=== PATIENT | female | born 1980 | race Caucasian/White ===

== ENCOUNTER → 2020-07-31 | Outpatient (CLI) | payer BC | LOC: EMI 14:46 | DX: M54.5 Low back pain (principal); M51.26 Other intervertebral disc displacement, lumbar region; M51.86 Other intervertebral disc disorders, lumbar region | CPT/HCPCS: 72148 ==

== ENCOUNTER → 2020-09-20 | Outpatient (CLI) | payer BC | LOC: KOH-I 15:26 | DX: R22.31 Localized swelling, mass and lump, right upper limb (principal) | CPT/HCPCS: 76882 ==

== ENCOUNTER → 2020-10-09 | Outpatient (CLI) | payer BC ==
[2020-10-09 11:46] LABS: HEMOGLOBIN 12.8 gm/dl (12.3-15.3); RED BLOOD COUNT 4.86 M/UL (4.00-5.10); WHITE BLOOD COUNT 5.5 K/UL (4.5-11.0)
[2020-10-09 11:58] LABS: BUN/CREATININE RATIO 14 (0-10)
[2020-10-10 08:14] LABS: HBSAG SCREEN Negative (Negative); HEP A AB, IGM Negative (Negative); HEP B CORE AB, IGM Negative (Negative); HEP C VIRUS AB <0.1 (0.0-0.9); VITAMIN D, 25-HYDROXY 22.7 ng/mL (30.0-100.0)
[2020-10-10 10:14] LABS: RHEUMATOID ARTHRITIS FACTOR 60.8 IU/mL (0.0-13.9)
[2020-10-11 00:09] LABS: CCP ANTIBODIES IGG/IGA 10 units (0-19)
[2020-10-15 18:11] LABS: QUANTIFERON MITOGEN VALUE >10.00 IU/mL (.); QUANTIFERON-TB GOLD PLUS Negative (Negative)
== END ==
LOC: LAB 10:30
PROVIDERS: Nurse Practitioner Family
DX: M25.50 Pain in unspecified joint (principal); R76.8 Other specified abnormal immunological findings in serum; R53.83 Other fatigue; M79.10 Myalgia, unspecified site; M06.9 Rheumatoid arthritis, unspecified; D89.9 Disorder involving the immune mechanism, unspecified
CPT/HCPCS: 36415; 80053; 80074; 82550; 82728; 83520; 85025; 85652; 86140; 86200; 86431

== ENCOUNTER → 2021-03-05 | Outpatient (CLI) | payer BC ==
[2021-03-05 17:24] LABS: HEMOGLOBIN 13.9 gm/dl (12.3-15.3); RED BLOOD COUNT 4.78 M/UL (4.00-5.10); WHITE BLOOD COUNT 6.9 K/UL (4.5-11.0)
[2021-03-05 17:56] LABS: BUN/CREATININE RATIO 16 (0-10)
== END ==
LOC: LAB 16:54
PROVIDERS: Internal Medicine
DX: Z51.81 Encounter for therapeutic drug level monitoring (principal); Z79.899 Other long term (current) drug therapy
CPT/HCPCS: 36415; 80053; 85025

== ENCOUNTER → 2021-04-04 | Outpatient (CLI) | payer BC | LOC: EXRD 03-25 10:30 | DX: R22.31 Localized swelling, mass and lump, right upper limb (principal) | CPT/HCPCS: 76882 ==

== ENCOUNTER → 2021-08-13 | Outpatient (CLI) | payer BC ==
[~2021-08-13] VITALS: Ht 167.6 cm; Wt 54.9 kg
== END ==
LOC: EROP 13:52
DX: U07.1 COVID-19 (principal); Z23 Encounter for immunization; J98.4 Other disorders of lung
CPT/HCPCS: M0247; Q0247

== ENCOUNTER → 2021-08-15 | Outpatient (CLI) | payer BC | LOC: US 09:32 | DX: N64.4 Mastodynia (principal); R59.0 Localized enlarged lymph nodes | CPT/HCPCS: 76642-RT; 77066; G0279 ==